=== PATIENT | male | born 1960 | race Caucasian/White ===

== ENCOUNTER 2017-06-07 14:06 | Emergency (ER) | payer OTHER ==
[2017-06-07 14:17] VITALS: TEMP 97.8; BMI 33.3
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
[2017-06-07] MEDS ORDERED: SODIUM CHLORIDE 1,000 ML IV STA (14:55)
[2017-06-07] MEDS ORDERED: morphine CARPU-JECT 4 MG/1 ML DISP.SYRIN IVPUSH ONE (14:59)
[2017-06-07] MEDS ORDERED: ONDANSETRON 4 MG/2 ML VIAL IVPUSH ONE (14:59)
[2017-06-07 15:54] LABS: HEMATOCRIT 47.1 % (35.4-49); HEMOGLOBIN 15.9 GM/dL (11.7-16.9); MCHC 33.7 g/dl (32.0-35.9)
[2017-06-07 15:59] LABS: BASO % 1.2 % (0-2.0); EOS % 1.7 % (0-4.5); LYMPH % 21.7 % (8-40); MCH 30.8 pg (25.7-33.7); MEAN CELL VOLUME 91.2 fl (80-96); MONO % 11.1 % (3.8-10.2); NEUT % 64.3 % (42.8-82.8); PLATELET COUNT 177 K/MM3 (134-434); RBC 5.16 M/mm3 (4.00-5.60); RDW 14.8 % (11.9-15.9); WHITE BLOOD COUNT 6.9 K/mm3 (4.0-10.0)
[2017-06-07] MEDS ORDERED: morphine SULFATE 4 MG/ML VIAL ONE (16:02)
[2017-06-07] MEDS ORDERED: ONDANSETRON 4 MG/2 ML VIAL ONE (16:02)
[2017-06-07 16:07] LABS: INR 1.04 (0.82-1.09); PROTHROMBIN TIME (PATIENT) 11.8 SEC (9.98-11.88)
[2017-06-07 16:19] LABS: ALBUMIN 3.9 g/dl (3.4-5.0); ANION GAP 9 (8-16); BILIRUBIN,TOTAL 0.5 mg/dL (0.2-1.0); BLOOD UREA NITROGEN 21 mg/dL (7-18); CALCIUM 9.3 mg/dL (8.5-10.1); CHLORIDE 102 mmol/L (98-107); CO2 27 mmol/L (21-32); GLUCOSE,RANDOM 199 mg/dL (74-106); SGPT/ALT 50 U/L (12-78); SODIUM 138 mmol/L (136-145); TOT PROT 7.2 g/dl (6.4-8.2)
[2017-06-07 16:22] LABS: ALK PHOS 52 U/L (45-117)
[2017-06-07 16:23] LABS: MAGNESIUM 2.4 mg/dL (1.8-2.4); POTASSIUM 4.8 mmol/L (3.5-5.1); SGOT/AST 41 U/L (15-37)
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
[2017-06-07 18:48] VITALS: BP 111/70; PULSE 70
--- NOTE | 2017-06-08 08:24 | EKG ---
Test Reason : Blood Pressure : / mmHG Vent. Rate : 082 BPM Atrial Rate : 082 BPM P-R Int : 182 ms QRS Dur : 094 ms QT Int : 348 ms P-R-T Axes : 053 056 051 degrees QTc Int : 406 ms NORMAL SINUS RHYTHM NORMAL ECG WHEN COMPARED WITH ECG OF 18-JUN-2014 10:39, NO SIGNIFICANT CHANGE WAS FOUND Confirmed by ADEOLA OZUNA MD ([id number]) on 06/08/2017 8:24:19 AM Referred By: Confirmed By:ADEOLA OZUNA MD
== END 2017-06-07 18:59 | disposition home or self-care (01) ==
LOC: JER 14:06
PROC: 3E033NZ Introduction of Analgesics, Hypnotics, Sedatives into Peripheral Vein, Percutaneous Approach (ICD-10-PCS; principal; 2017-06-07)
PROC: 3E033GC Introduction of Other Therapeutic Substance into Peripheral Vein, Percutaneous Approach (ICD-10-PCS; 2017-06-07)
PROC: 3E0337Z Introduction of Electrolytic and Water Balance Substance into Peripheral Vein, Percutaneous Approach (ICD-10-PCS; 2017-06-07)
DX: V43.52XA Car driver injured in collision with other type car in traffic accident, initial encounter (principal); Y93.89 Activity, other specified; Y92.410 Unspecified street and highway as the place of occurrence of the external cause; M54.9 Dorsalgia, unspecified; M54.2 Cervicalgia; Z87.891 Personal history of nicotine dependence; E07.9 Disorder of thyroid, unspecified
CPT/HCPCS: 36415; 70450-TC; 71045-TC-FY; 72125-TC; 72128-TC; 72131-TC; 80053; 82550; 83735; 84484; 85025; 85610; 93005; 93010; 99283-25; J7030

== ENCOUNTER 2018-09-07 18:48 | Observation (INO) | payer OTHER ==
[2018-09-07] MEDS ORDERED: ACETAMINOPHEN 1000 MG/100 ML VIAL (NON FORMULARY) IVPB ONE (19:58)
[2018-09-07] MEDS ORDERED: NITROGLYCERIN SUBLINGUAL 1/150 0.4 MG TAB SL ONE (19:58)
[2018-09-07 20:10] VITALS: BMI 33.0
[2018-09-07 20:21] LABS: BASO % 0.8 % (0-2.0); HEMATOCRIT 47.2 % (35.4-49); HEMOGLOBIN 15.6 GM/dl (11.7-16.9); LYMPH % 13.3 % (8-40); MCH 29.6 pg (25.7-33.7); MEAN CELL VOLUME 89.8 fl (80-96); MONO % 6.4 % (3.8-10.2); NEUT % 76.5 % (42.8-82.8); PLATELET COUNT 171 K/MM3 (134-434); RBC 5.26 M/mm3 (4.00-5.60); RDW 13.5 % (11.9-15.9); WHITE BLOOD COUNT 6.2 K/mm3 (4.0-10.8)
[2018-09-07 20:37] LABS: BILIRUBIN,TOTAL 0.5 mg/dl (0.2-1); CALCIUM 9.2 mg/dl (8.5-10); CREATININE 0.8 mg/dl (0.55-1.3); POTASSIUM 3.1 mmol/L (3.5-5.1); TOT PROT 6.8 g/dl (6.4-8.2)
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
[2018-09-07] MEDS ORDERED: ZOLPIDEM TARTRATE 5 MG TABLET PO ONE ×2 (20:54→23:50)
[2018-09-07] MEDS ORDERED: ATORVASTATIN CA 10 MG TABLET (FP) PO SCH (22:00)
[2018-09-07] MEDS ORDERED: PATIENT'S OWN MEDICATION (NON-FORMULARY) (Omega-3 Fatty Acids [Omega-3] 1,000 MG) PO SCH (22:00)
[2018-09-07] MEDS ORDERED: POTASSIUM CHLORIDE TABS 20 MEQ TABLET.ER (FP) PO ONE (22:19)
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
[2018-09-07] MEDS: PANTOPRAZOLE 40 MG TABLET (FP) PO SCH (23:20)
[2018-09-08] MEDS ORDERED: ACETAMINOPHEN 1000 MG/100 ML VIAL (NON FORMULARY) IVPB ONE (01:46)
[2018-09-08] MEDS ORDERED: NITROGLYCERIN SUBLINGUAL 1/150 0.4 MG TAB ONE (01:46)
[2018-09-08] MEDS ORDERED: NITROGLYCERIN SUBLINGUAL 1/150 0.4 MG TAB SL ONE (01:46)
[2018-09-08] MEDS ORDERED: ACETAMINOPHEN INJECTION 100 ML IVPB ONE (01:49)
--- NOTE | 2018-09-08 04:05 | PDOC ---
*Physical Exam - Vital Signs Last Vital Signs Temp Pulse Resp BP Pulse Ox 97.7 F 82 19 106/71 98 09/08/18 01:11 09/08/18 01:11 09/08/18 01:11 09/08/18 01:11 09/08/18 02:03 - Physical Exam Comments: 09/08/18 04:04 called to bedside to reassess patient for chest pain. patient complaining of substernal chest pain similar to the pain he had in the ED. EKG normal. Pain improved with SL nitro and IV tylenol. tropnonin negative. Patient will be followed by hospitalist team in the morning. ED Treatment Course - LABORATORY CBC & Chemistry Diagram: 09/07/18 20:00 09/07/18 20:00 - ADDITIONAL ORDERS Additional order review: Laboratory Results 09/07/18 09/07/18 20:00 20:00 Sodium 137 Potassium 3.1 L Chloride 103 Carbon Dioxide 25 Anion Gap 9 BUN 16.0 Creatinine 0.8 Est GFR (CKD-EPI)AfAm 116.56 Est GFR (CKD-EPI)NonAf 100.57 Random Glucose 154 H Calcium 9.2 Total Bilirubin 0.5 AST 22 ALT 21 Alkaline Phosphatase 59 Creatine Kinase 44 Troponin I < 0.03 Total Protein 6.8 Albumin 4.0 09/07/18 20:00 RBC 5.26 MCV 89.8 MCHC 33.0 RDW 13.5 MPV 11.0 Neutrophils % 76.5 D Lymphocytes % 13.3 D Monocytes % 6.4 Eosinophils % 3.0 Basophils % 0.8 - RADIOLOGY Radiology Studies Ordered: Category Date Time Status CXRPORT [CHEST X-RAY PORTABLE*] [RAD] Stat Radiology 09/07/18 19:57 Taken - Medications Given in the ED: ED Medications Discontinued Medications Generic Name Dose Route Start Last Admin Trade Name Freq PRN Reason Stop Dose Admin Acetaminophen 1,000 mg 09/07/18 19:58 09/07/18 20:23 Ofirmev Injection - IVPB 09/07/18 19:59 1,000 mg ONCE ONE Administration Acetaminophen 1,000 mg 09/08/18 01:46 09/08/18 01:58 Ofirmev Injection - IVPB 09/08/18 01:47 1,000 mg ONCE ONE Administration Nitroglycerin 0.4 mg 09/07/18 19:58 09/07/18 20:23 Nitrostat - SL 09/07/18 19:59 0.4 mg ONCE ONE Administration Nitroglycerin 0.4 mg 09/08/18 01:46 09/08/18 01:56 Nitrostat - SL 09/08/18 01:47 0.4 mg ONCE ONE Administration Potassium Chloride 40 meq 09/07/18 22:19 09/07/18 23:20 K-Dur - PO 09/07/18 22:20 40 meq ONCE ONE Administration Zolpidem Tartrate 5 mg 09/07/18 20:54 09/07/18 21:15 Ambien - PO 09/07/18 20:55 Not Given ONCE ONE *DC/Admit/Observation/Transfer Diagnosis at time of Disposition: Chest pain Qualifiers: Chest pain type: other chest pain Qualified Code(s): R07.89 - Other chest pain - Discharge Dispostion Condition at time of disposition: Stable - Referrals - Patient Instructions - Post Discharge Activity
[2018-09-08] MEDS: HEPARIN NA (PORCINE) 5,000 UNITS/ML 1ML VIAL SQ SCH ×2 (06:31→10:41)
[2018-09-08] MEDS ORDERED: LEVOTHYROXINE NA 150 MCG TABLET PO SCH (07:00)
[2018-09-08 08:26] LABS: RDW 13.3 % (11.9-15.9); WHITE BLOOD COUNT 4.8 K/mm3 (4.0-10.8)
[2018-09-08] MEDS: INSULIN (NOVOLOG) ASPART 100 UNITS/ML 10ML VIAL SQ SCH ×2 (08:27→11:18)
[2018-09-08 08:28] LABS: HEMATOCRIT 46.5 % (35.4-49); HEMOGLOBIN 15.4 GM/dl (11.7-16.9); MCH 29.8 pg (25.7-33.7); MCHC 33.3 g/dl (32.0-35.9); MEAN CELL VOLUME 89.7 fl (80-96); MEAN PLT VOLUME 10.7 fl (7.5-11.1); PLATELET COUNT 149 K/MM3 (134-434); RBC 5.18 M/mm3 (4.00-5.60)
[2018-09-08 09:02] LABS: ALBUMIN 3.9 g/dl (3.4-5.0); CALCIUM 8.9 mg/dl (8.5-10); CREATININE 0.7 mg/dl (0.55-1.3); MAGNESIUM 1.6 mg/dL (1.8-2.4); POTASSIUM 3.7 mmol/L (3.5-5.1); TOT PROT 6.8 g/dl (6.4-8.2)
[2018-09-08] MEDS ORDERED: PATIENT'S OWN MEDICATION (NON-FORMULARY) (Losartan/Hydrochlorothiazide [Losartan-Hctz 100- PO SCH (10:00)
[2018-09-08] MEDS ORDERED: ESCITALOPRAM OXALATE 20 MG TABLET (FP) PO SCH (10:00)
[2018-09-08] MEDS ORDERED: HYDROCHLOROTHIAZIDE 12.5 MG CAPSULE (FP) PO SCH (10:00)
[2018-09-08] MEDS ORDERED: LOSARTAN POTASSIUM 50 MG TABLET (FP) PO SCH (10:00)
[2018-09-08] MEDS: PANTOPRAZOLE 40 MG TABLET (FP) PO SCH (10:41)
--- NOTE | 2018-09-08 11:30 | CON.CARD ---
Consult Consult Specialty:: Cardiology Referred by:: Danii Resendiz Reason for Consultation:: Chest pain - History of Present Illness Chief Complaint: epigastric pain History of Present Illness: 57M w/ DM, chronic GERD, thyroid CA s/p resection, opiate dependance admitted with epigastric pain and severe GERD sx w/ water brash sensation after eating a leger, egg and cheese sandwich and falling asleep. He woke up with diffuse abdominal gurgling and discomfort and epigastric pain similar to previous GERD, but more severe. [place] acid in back of throat and came in for evaluation. Denies SOB, diaphoresis, PND, orthopnea. No exertional CP. Had false + stress 5 years ago prompting a cardiac cath at [place] which he reports was non-obstx. Reports the epigastric pain immediately resolved w/ Mylanta/antacids. - History Source History Provided By: Patient Limitations to Obtaining History: No Limitations - Past Medical History Cardio/Vascular: Yes: HTN, Hyperlipdemia Pulmonary: No: Asthma, Bronchitis, Cancer, COPD, O2 Dependent, Pneumonia, Previously Intubated, Pulmonary Embolus, Pulmonary Fibrosis, Sleep Apnea, Other Gastrointestinal: Yes: GERD Hepatobiliary: No: Cirrhosis, Cholelithiasis, Cholecystitis, Choledocholithiasis , Hepatitis A, Hepatitis B, Hepatitis C, Other Renal/: No: Renal Failure, Renal Inusuff, BPH, Cancer, Hematuria, Hemodialysis , Neurogenic Bladder, Renal Calculi, UTI, Other Heme/Onc: No: Anemia, B12 Deficiency, Bleeding Disorder, Cancer, Current Chemotherapy, Current Radiation Therapy, Hemochromatosis, Hypercoaguable State, Myeloproliferative Synd, Sickle Cell Disease, Sickle Cell Trait, Thrombocytopenia, Other Infectious Disease: No: AIDS, C-Diff, Herpes Zoster, HIV, MRSA, STD's, Tuberculosis, VREF, Other Psych: Yes: Addictions, Depression Musculoskeletal: No: Bursitis, Chronic low back pain, Hemiparesis, Hemiplegia, Osteoarthritis, Paraplegia, Other Rheumatology: No: Fibromyalgia, Gout, Lupus, Rheumatoid Arthritis, Sarcoidosis, Vasculitis, Other ENT: No: Allergic Rhinitis, Sinusitis, Other Endocrine: Yes: Diabetes Mellitus Dermatology: No: Basal Cell, Cellulitis, Eczema, Melanoma, Psoriasis, Squamous Cell, Other - Past Surgical History Additional Surgical History: prior thyroid resection, neck and shoulder surgery - Alcohol/Substance Use Hx Alcohol Use: No - Smoking History Smoking history: Former smoker Have you smoked in the past 12 months: Yes Aproximately how many cigarettes per day: 40 If you are a former smoker, when did you quit?: SEPTEMBER 2011 - Social History Usual Living Arrangement: With Child Place of : [facility] History of Recent Travel: No Home Medications - Allergies Allergies/Adverse Reactions: Allergies Allergy/AdvReac Type Severity Reaction Status Date / Time No Known Allergies Allergy Verified 09/07/18 18:50 - Home Medications Home Medications: Ambulatory Orders Buprenorphine HCl/Naloxone HCl [Suboxone 4 mg-1 mg Sl Film] 1 each SL DAILY Escitalopram Oxalate [Lexapro -] 20 mg PO DAILY 06/07/17 Glipizide [Glipizide ER] 10 mg PO BID 06/07/17 Levothyroxine Sodium [Synthroid] 0.3 mg PO DAILY 06/07/17 Losartan/Hydrochlorothiazide [Losartan-Hctz 100-12.5 mg Tab] 1 each PO DAILY [place]-3 Fatty Acids [[place]-3] 1,000 mg PO BID 06/07/17 Omeprazole 40 mg PO BID 06/07/17 Pravastatin Sodium [Pravachol (Nf)] 40 mg PO HS 06/07/17 metFORMIN HCL [Metformin HCl ER] 1,000 mg PO BID 06/07/17 Family Disease History - Family Disease History Family History: Unremarkable Review of Systems - Review of Systems Constitutional: reports: No Symptoms Eyes: reports: No Symptoms HENT: reports: No Symptoms Neck: reports: No Symptoms Cardiovascular: reports: No Symptoms Respiratory: reports: No Symptoms Gastrointestinal: reports: Abdominal Pain, Bloating, Other (Epigastric pain now resolved.) Genitourinary: reports: No Symptoms Breasts: reports: No Symptoms Reported Musculoskeletal: reports: No Symptoms Integumentary: reports: No Symptoms Neurological: reports: No Symptoms Endocrine: reports: No Symptoms Hematology/Lymphatic: reports: No Symptoms Psychiatric: reports: No Symptoms - Risk Factors Known Risk Factors: Yes: Diabetes Mellitus, Hypercholesterolemia, Hypertension, Smoking Vital Signs: Vital Signs Temperature 98.9 F 09/08/18 10:35 Pulse Rate 83 09/08/18 10:35 Respiratory Rate 09/08/18 10:35 Blood Pressure 113/68 09/08/18 10:35 O2 Sat by Pulse Oximetry (%) 99 09/08/18 10:35 Constitutional: Yes: No Distress, Calm Eyes: Yes: Conjunctiva Clear, EOM Intact HENT: Yes: Atraumatic, Normocephalic Neck: Yes: Trachea Midline Respiratory: Yes: CTA Bilaterally Gastrointestinal: Yes: Soft, Other (no rebound or guarding) Cardiovascular: Yes: Regular Rate and Rhythm JVD: No Carotid Bruit: No PMI: Non-Displaced Heart Sounds: Yes: S1, S2 Edema: No Peripheral Pulses WNL: Yes Integumentary: Yes: WNL Neurological: Yes: Alert, Oriented ...Motor Strength: WNL Psychiatric: Yes: Alert, Oriented - Other Data Labs, Other Data: CBC, BMP 09/08/18 07:37 09/08/18 07:37 Troponin, BNP 09/07/18 09/08/18 09/08/18 20:00 02:15 07:37 Troponin I < 0.03 < 0.02 < 0.03 Troponin, BNP 09/07/18 09/08/18 09/08/18 20:00 02:15 07:37 Troponin I < 0.03 < 0.02 < 0.03 1. 09/07 18:57--NSR 83bpm. Qtc= 425. No acute ST changes. 2. 09/08 01:46--NSR 74bpm, no acute changes. Imaging - Results X-ray: Pending, Other (my review, no infiltrates or cardiomegaly. Aortic contour normal) Assessment/Plan IMP: 1. Suspect GERD- triggered by heavy meal 2. 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 5 years ago) 3. History of DM, HTN, HLD 4. Reported opioid dependance. Epigastric pain with water brash similar to previous GERD, resultant atypical CP completely relieved with antacid. Serial cardiac enzymes negative and stable ECGs without ischemic changes. REC: 1. No objection to discharge home with PPI and instructions on techniques to reduce GERD. 2. Continue home meds for DM, HLD, HTN. 3. Instructed patient to f/u in office w/ Dr. Rivera next week to re-establish cardiac care: needs lipid management and consideration for updated CV risk stratification with outpatient stress testing. Thank you.
[2018-09-08] MEDS ORDERED: MAGNESIUM SULF 50% (8.12 MEQ/2 ML-1 GM VIAL) IVPB ONE (12:17)
--- NOTE | 2018-09-08 12:29 | DS ---
Physical Exam: SUBJECTIVE: Patient seen and examined. Pt reports chest pain resolved, no complains. OBJECTIVE: Vital Signs Period Temp Pulse Resp BP Sys/Elaine Pulse Ox Last 24 Hr 97.7 F-98.9 F 67-83 18-20 104-134/66-90 98-99 PHYSICAL EXAM GENERAL: The patient is awake, alert, and fully oriented, in no acute distress. HEAD: Normal with no signs of trauma. EYES: PERRL, extraocular movements intact, sclera anicteric, conjunctiva clear. ENT: Ears normal, nares patent, oropharynx clear without exudates, moist mucous membranes. NECK: Trachea midline, full range of motion, supple. LUNGS: Breath sounds equal, clear to auscultation bilaterally, no wheezes, no crackles, no accessory muscle use. HEART: Regular rate and rhythm, S1, S2 without murmur, rub or gallop. ABDOMEN: Soft, nontender, nondistended, normoactive bowel sounds, no guarding, no rebound, no hepatosplenomegaly, no masses. EXTREMITIES: 2+ pulses, warm, well-perfused, no edema. NEUROLOGICAL: Cranial nerves II through XII grossly intact. Normal speech, gait not observed. PSYCH: Normal mood, normal affect. SKIN: Warm, dry, normal turgor, no rashes or lesions noted. LABS Laboratory Results - last 24 hr 09/07/18 09/07/18 09/07/18 20:00 20:00 20:00 WBC 6.2 RBC 5.26 Hgb 15.6 Hct 47.2 MCV 89.8 MCH 29.6 MCHC 33.0 RDW 13.5 Plt Count 171 MPV 11.0 Absolute Neuts (auto) 4.8 Neutrophils % 76.5 D Lymphocytes % 13.3 D Monocytes % 6.4 Eosinophils % 3.0 Basophils % 0.8 Sodium 137 Potassium 3.1 L Chloride 103 Carbon Dioxide 25 Anion Gap 9 BUN 16.0 Creatinine 0.8 Est GFR (CKD-EPI)AfAm 116.56 Est GFR (CKD-EPI)NonAf 100.57 POC Glucometer Random Glucose 154 H Calcium 9.2 Magnesium Total Bilirubin 0.5 AST 22 ALT 21 Alkaline Phosphatase 59 Creatine Kinase 44 Troponin I < 0.03 Total Protein 6.8 Albumin 4.0 09/08/18 09/08/18 09/08/18 02:15 06:43 07:37 WBC 4.8 RBC 5.18 Hgb 15.4 Hct 46.5 MCV 89.7 MCH 29.8 MCHC 33.3 RDW 13.3 Plt Count 149 MPV 10.7 Absolute Neuts (auto) Neutrophils % Lymphocytes % Monocytes % Eosinophils % Basophils % Sodium Potassium Chloride Carbon Dioxide Anion Gap BUN Creatinine Est GFR (CKD-EPI)AfAm Est GFR (CKD-EPI)NonAf POC Glucometer 156 Random Glucose Calcium Magnesium Total Bilirubin AST ALT Alkaline Phosphatase Creatine Kinase 47 Troponin I < 0.02 Total Protein Albumin 09/08/18 09/08/18 09/08/18 07:37 07:37 11:15 WBC RBC Hgb Hct MCV MCH MCHC RDW Plt Count MPV Absolute Neuts (auto) Neutrophils % Lymphocytes % Monocytes % Eosinophils % Basophils % Sodium 136 Potassium 3.7 Chloride 103 Carbon Dioxide 22 Anion Gap 11 BUN 13.0 Creatinine 0.7 Est GFR (CKD-EPI)AfAm 123.13 Est GFR (CKD-EPI)NonAf 106.24 POC Glucometer 150 Random Glucose 128 H Calcium 8.9 Magnesium 1.6 L Total Bilirubin 1.0 AST 17 ALT 22 Alkaline Phosphatase 53 Creatine Kinase Troponin I < 0.03 Total Protein 6.8 Albumin 3.9 HOSPITAL COURSE: Date of Admission:09/07/18 Date of Discharge: 09/08/18 Minutes to complete discharge: 40 Discharge Summary Reason For Visit: CHEST PAIN Current Active Problems Chest pain (Acute) Hospital Course: This is a 57 year old male, with a significant PMH of Thyroid cancer, HTN, NIDDM , x2 CO (4-5 years ago), chronic back pain (on suboxone), multiple spinal surgeries,, hypercholesterolemia, liver cirrhosis and sleep apnea,who presented to ED with mid-sternal chest pain,not associated with sob, diaphoresis or palpitations. Pt stated "I have chronic chest pain" pt was given Nitro in ED, which relieved pain, c/o pain radiating to shoulder, denies numbness or pain going down arm or jaw pain. pt has been off of suboxone for 2 weeks. Last seen by cardio 5 yrs ago. does not recall name. Pt was admitted under observation, EKG: SR, serial cardiac enzymes negative, ACS ruled out, telemetry monitoring reviewed, no cardiac events noted. Pt was evaluated by cardiology Dr. Bryan, rec out pt cardiology followup. Atypical chest pain likely due to GERD. Will resume on PPI. *Hypokalemia, s/p replacement, K normalized. *NIDDM: BS stable, will continue on home meds,rec to resume on consistent carbohydrate diet. *Chronic back pain- stable,pt off suboxone 2 weeks (pt has hx of chronic use of Morphine) *HTN: BP stable, will resume on home meds Losaartan/hctz *HLD: Will resume on Statin * Hx of Liver cirrhosis,LFT's wnl, out pt GI followup. * Hypomagnesemia: Mg 1.6, replaced , K stable. Condition: Good - Instructions Diet, Activity, Other Instructions: Diabetic and Heart healthy diet ( low fat, low salt) Referrals: Yobany Awan MD [Staff Physician] - 1 Week Alfa Robbins MD [Primary Care Provider] - (1-2 weeks.) Disposition: HOME - Home Medications Comprehensive Discharge Medication List: Ambulatory Orders Escitalopram Oxalate [Lexapro -] 20 mg PO DAILY 06/07/17 Glipizide [Glipizide ER] 10 mg PO BID 06/07/17 Losartan/Hydrochlorothiazide [Losartan-Hctz 100-12.5 mg Tab] 1 each PO DAILY [place]-3 Fatty Acids [[place]-3] 1,000 mg PO BID 06/07/17 Omeprazole 40 mg PO BID 06/07/17 metFORMIN HCL [Metformin ER Osmotic] 1,000 mg PO BID 06/07/17 This patient is new to me today: Yes Date on this admission: 09/09/18 Emergency Visit: Yes ED Registration Date: 09/07/18 Care time: The patient presented to the Emergency Department on the above date and was hospitalized for further evaluation of their emergent condition. Critical Care patient: No - Discharge Referral Referred to [facility] No
--- NOTE | 2018-09-08 12:35 | EKG ---
Test Reason : Blood Pressure : / mmHG Vent. Rate : 083 BPM Atrial Rate : 083 BPM P-R Int : 168 ms QRS Dur : 086 ms QT Int : 362 ms P-R-T Axes : 088 050 043 degrees QTc Int : 425 ms NORMAL SINUS RHYTHM NORMAL ECG WHEN COMPARED WITH ECG OF 07-JUN-2017 16:43, NO SIGNIFICANT CHANGE WAS FOUND Confirmed by JIM SHEIKH MD ([id number]) on 09/08/2018 12:34:39 PM Referred By: MD DESAI Confirmed By:JIM SHEIKH MD
[2018-09-08 15:46] VITALS: BP 116/69; PULSE 78; TEMP 98.7
--- NOTE | 2018-09-10 10:40 | EKG ---
Test Reason : Blood Pressure : / mmHG Vent. Rate : 074 BPM Atrial Rate : 074 BPM P-R Int : 170 ms QRS Dur : 090 ms QT Int : 370 ms P-R-T Axes : 044 058 042 degrees QTc Int : 410 ms NORMAL SINUS RHYTHM WITH SINUS ARRHYTHMIA NORMAL ECG WHEN COMPARED WITH ECG OF 07-SEP-2018 18:57, NO SIGNIFICANT CHANGE WAS FOUND Confirmed by KRIS BRUCE MD ([id number]) on 09/10/2018 10:39:56 AM Referred By: Confirmed By:KRIS BRUCE MD
== END 2018-09-08 14:15 | disposition home or self-care (01) ==
LOC: FER 18:48 → FM/S 21:39 → INTOOBSV 21:39 → UNDODISIN 09-08 14:15
PROVIDERS: ADMIT Internal Medicine; ATTEND Nurse Practitioner Family
PROC: 3E033NZ Introduction of Analgesics, Hypnotics, Sedatives into Peripheral Vein, Percutaneous Approach (ICD-10-PCS; principal; 2018-09-07)
PROC: 3E033GC Introduction of Other Therapeutic Substance into Peripheral Vein, Percutaneous Approach (ICD-10-PCS; 2018-09-07)
PROC: 3E013GC Introduction of Other Therapeutic Substance into Subcutaneous Tissue, Percutaneous Approach (ICD-10-PCS; 2018-09-07)
DX: R07.89 Other chest pain (principal); I10 Essential (primary) hypertension; I11.9 Hypertensive heart disease without heart failure; I25.10 Atherosclerotic heart disease of native coronary artery without angina pectoris; I25.2 Old myocardial infarction; M54.5 Low back pain; G89.29 Other chronic pain; K74.60 Unspecified cirrhosis of liver; G47.30 Sleep apnea, unspecified; E87.6 Hypokalemia; E83.42 Hypomagnesemia; Z87.891 Personal history of nicotine dependence; Z79.84 Long term (current) use of oral hypoglycemic drugs; Z91.14 Patient's other noncompliance with medication regimen; Z85.850 Personal history of malignant neoplasm of thyroid
CPT/HCPCS: 36415; 71045-TC-FY; 80053; 82550; 82962; 83735; 84484; 85025; 85027; 93005; 96372; 96374; 96375; 96376; 99285-25; G0378; J0131; J1644

== ENCOUNTER 2022-06-12 15:57 | Emergency (ER) | payer OTHER ==
[2022-06-12 16:03] VITALS: BP 100/70; PULSE 94; RESP 18; TEMP 98; BMI 29.0
[2022-06-12] MEDS ORDERED: ONDANSETRON 4 MG/2 ML VIAL IVPUSH ONE (17:14)
[2022-06-12] MEDS ORDERED: ONDANSETRON 4 MG/2 ML VIAL ONE (17:22)
[2022-06-12 17:28] LABS: BASO % 0.9 % (0-2.0); HEMATOCRIT 43.2 % (35.4-49); HEMOGLOBIN 14.8 GM/dL (11.7-16.9); LYMPH % 23.1 % (8-40); MCH 30.1 pg (25.7-33.7); MCHC 34.2 g/dl (32.0-35.9); MEAN PLT VOLUME 9.9 fl (7.5-11.1); PLATELET COUNT 210 10^3/uL (134-434); RBC 4.92 M/mm3 (4.00-5.60); RDW 13.8 % (11.9-15.9); WHITE BLOOD COUNT 5.8 K/mm3 (4.0-10.0)
[2022-06-12] MEDS ORDERED: ACETAMINOPHEN 1000 MG/100 ML BAG IVPB ONE (17:30)
[2022-06-12] MEDS ORDERED: ACETAMINOPHEN INJECTION 100 ML IVPB ONE (17:31)
[2022-06-12 17:50] LABS: ALBUMIN 3.4 g/dl (3.4-5.0); BLOOD UREA NITROGEN 16.6 mg/dL (7-18)
[2022-06-12 17:55] LABS: BILIRUBIN,TOTAL 0.4 mg/dL (0.2-1); TOT PROT 6.7 g/dl (6.4-8.2)
[2022-06-12] MEDS ORDERED: SODIUM CHLORIDE 1,000 ML IV STA (18:34)
== END 2022-06-12 18:50 | disposition left against medical advice (07) ==
LOC: JER 15:57
PROC: 3E033NZ Introduction of Analgesics, Hypnotics, Sedatives into Peripheral Vein, Percutaneous Approach (ICD-10-PCS; principal; 2022-06-12)
DX: R07.9 Chest pain, unspecified (principal); R11.2 Nausea with vomiting, unspecified; R19.7 Diarrhea, unspecified; Z20.822 Contact with and (suspected) exposure to COVID-19
CPT/HCPCS: 0241U-QW; 36415; 71045-TC-FY; 80053; 82272; 83605; 83690; 84484; 85025; 93005; 93010; 99285-25

== ENCOUNTER 2023-09-14 10:38 | Observation (INO) | payer OTHER ==
[2023-09-14 11:25] LABS: BASO % 1.2 % (0-2.0); EOS % 4.5 % (0-4.5); HEMATOCRIT 41.8 % (35.4-49); HEMOGLOBIN 14.2 GM/dL (11.7-16.9); LYMPH % 29.4 % (8-40); MCH 30.5 pg (25.7-33.7); MCHC 34.1 g/dl (32.0-35.9); MEAN CELL VOLUME 89.6 fl (80-96); MEAN PLT VOLUME 9.2 fl (7.5-11.1); NEUT % 47.9 % (42.8-82.8); PLATELET COUNT 197 10^3/uL (134-434); RBC 4.66 M/mm3 (4.00-5.60); RDW 16.3 % (11.9-15.9); WHITE BLOOD COUNT 5.5 K/mm3 (4.0-10.0)
[2023-09-14 11:29] LABS: VENOUS BASE EXCESS -1.4 mmol/L (-2-2); VENOUS PCO2 43.8 mmHg (38-52); VENOUS PH 7.36 (7.310-7.410)
[2023-09-14 11:32] LABS: INR 0.97 (0.83-1.09); PROTHROMBIN TIME (PATIENT) 11.2 SEC (9.7-13.0)
[2023-09-14 11:35] LABS: ACTIVATED PTT 30.8 SECONDS (25.2-36.5)
[2023-09-14] MEDS ORDERED: dilTIAZem HCL 125 MG/25 ML - 25 ML VIAL ONE (11:52)
[2023-09-14 11:55] LABS: CHLORIDE 105 mmol/L (98-107); POTASSIUM 4.4 mmol/L (3.5-5.1); SODIUM 138 mmol/L (136-145)
[2023-09-14] MEDS: dilTIAZem HCL 50 MG/10 ML - 10 ML VIAL IVPUSH ONE (11:56)
[2023-09-14 11:59] LABS: CALCIUM 9.2 mg/dL (8.5-10.1)
[2023-09-14 12:00] LABS: ALBUMIN 3.9 g/dl (3.4-5.0); ANION GAP 7 mmol/L (4-13); BLOOD UREA NITROGEN 10.8 mg/dL (7-18); CO2 27 mmol/L (21-32)
[2023-09-14] MEDS ORDERED: dilTIAZem HCL 30 MG TABLET ONE ×2 (12:01→18:12)
[2023-09-14 12:03] LABS: SGOT/AST 23 U/L (15-37); SGPT/ALT 40 U/L (13-61)
[2023-09-14 12:05] LABS: BILIRUBIN,TOTAL 0.5 mg/dL (0.2-1); TOT PROT 7.6 g/dl (6.4-8.2)
[2023-09-14 12:06] LABS: ALK PHOS 162 U/L (45-117)
[2023-09-14] MEDS: dilTIAZem HCL 30 MG TABLET PO ONE (12:07)
[2023-09-14 12:16] LABS: GLUCOSE,RANDOM 403 mg/dL (74-106)
[2023-09-14] MEDS ORDERED: metFORMIN HCL 500 MG TABLET (FP) ONE (17:40)
[2023-09-14] MEDS ORDERED: glipiZIDE 5 MG TABLET (FP) ONE (17:40)
[2023-09-14] MEDS: glipiZIDE-XL 10 MG TAB.ER.24 (FP) PO SCH (17:48)
[2023-09-14] MEDS: INSULIN ASPART SLIDING SCALE (NOVOLOG) 1 VIAL SQ SCH (17:48)
[2023-09-14] MEDS: dilTIAZem HCL 30 MG TABLET PO SCH (18:18)
[2023-09-14] MEDS: RIVAROXABAN 20 MG TABLET PO SCH (19:20)
[2023-09-14 20:41] VITALS: BMI 26.9
[2023-09-14] MEDS ORDERED: INSULIN ASPART SLIDING SCALE (NOVOLOG) 1 VIAL SQ ONE (21:29)
[2023-09-14] MEDS: FLUoxetine HCL 20 MG CAPSULE PO SCH (21:32)
[2023-09-14] MEDS: OMEGA-3 ACID ETHYL ESTERS (FATTY-ACIDS) 1 GM CAPSULE (FP) PO SCH (21:32)
[2023-09-14] MEDS: PANTOPRAZOLE 40 MG TABLET PO SCH (21:33)
[2023-09-15] MEDS: ACETAMINOPHEN 325 MG TABLET (FP) PO PRN (06:26)
[2023-09-15] MEDS ORDERED: INSULIN ASPART SLIDING SCALE (NOVOLOG) 1 VIAL SQ ONE (06:40)
[2023-09-15 09:28] LABS: BASO % 0.8 % (0-2.0); EOS % 5.4 % (0-4.5); HEMATOCRIT 42.2 % (35.4-49); HEMOGLOBIN 14.6 GM/dL (11.7-16.9); LYMPH % 27.6 % (8-40); MCH 30.9 pg (25.7-33.7); MCHC 34.7 g/dl (32.0-35.9); MEAN CELL VOLUME 89.1 fl (80-96); MEAN PLT VOLUME 9.2 fl (7.5-11.1); MONO % 12.3 % (3.8-10.2); NEUT % 53.9 % (42.8-82.8); PLATELET COUNT 184 10^3/uL (134-434); RBC 4.74 M/mm3 (4.00-5.60); RDW 16.1 % (11.9-15.9); WHITE BLOOD COUNT 5.3 K/mm3 (4.0-10.0)
[2023-09-15 09:45] LABS: POTASSIUM 4.1 mmol/L (3.5-5.1)
[2023-09-15 09:52] LABS: CALCIUM 8.7 mg/dL (8.5-10.1)
[2023-09-15 09:54] LABS: CREATININE 0.6 mg/dL (0.55-1.3)
[2023-09-15 09:55] LABS: ALBUMIN 3.7 g/dl (3.4-5.0); BLOOD UREA NITROGEN 8.1 mg/dL (7-18); TOT PROT 7.3 g/dl (6.4-8.2)
[2023-09-15 09:56] LABS: MAGNESIUM 1.7 mg/dL (1.8-2.4)
[2023-09-15 09:59] LABS: BILIRUBIN,TOTAL 0.8 mg/dL (0.2-1)
[2023-09-15] MEDS: NICOTINE 21 MG/24 HOURS TOPICAL PATCH TD SCH (12:00)
[2023-09-15] MEDS: DEXTROAMPHETAMINE/AMPHETAMINE 10 MG CAP.ER.24H PO SCH (14:18)
[2023-09-15] MEDS: TAMSULOSIN HCL 0.4 MG CAP PO SCH (15:52)
[2023-09-16] MEDS: HEPARIN NA (PORCINE) 5,000 UNITS/ML 1ML VIAL SQ SCH (08:08)
[2023-09-16] MEDS: MAGNESIUM SULFATE IN WATER 2 GM/50 ML IVPB IVPB ONE (12:34)
[2023-09-16] MEDS: SENNOSIDES/DOCUSATE COMBO (SENNA PLUS) TABLET (UD) PO PRN (21:16)
[2023-09-17] MEDS: EMPAGLIFLOZIN (JARDIANCE) 25 MG TABLET PO SCH (06:27)
[2023-09-17 07:29] LABS: EOS % 5.2 % (0-4.5); HEMATOCRIT 39.7 % (35.4-49); HEMOGLOBIN 13.5 GM/dL (11.7-16.9); LYMPH % 26.3 % (8-40); MCH 30.6 pg (25.7-33.7); MCHC 34.1 g/dl (32.0-35.9); MEAN CELL VOLUME 89.6 fl (80-96); MEAN PLT VOLUME 9.3 fl (7.5-11.1); MONO % 11.4 % (3.8-10.2); NEUT % 56.1 % (42.8-82.8); PLATELET COUNT 169 10^3/uL (134-434); RBC 4.43 M/mm3 (4.00-5.60); RDW 15.6 % (11.9-15.9); WHITE BLOOD COUNT 5.1 K/mm3 (4.0-10.0)
[2023-09-17 07:48] LABS: POTASSIUM 3.9 mmol/L (3.5-5.1)
[2023-09-17 07:57] LABS: CALCIUM 8.6 mg/dL (8.5-10.1)
[2023-09-17 07:58] LABS: ALBUMIN 3.4 g/dl (3.4-5.0); BLOOD UREA NITROGEN 10.7 mg/dL (7-18); MAGNESIUM 1.6 mg/dL (1.8-2.4)
[2023-09-17 08:00] LABS: CREATININE 0.6 mg/dL (0.55-1.3)
[2023-09-17 08:02] LABS: BILIRUBIN,TOTAL 0.8 mg/dL (0.2-1); TOT PROT 6.7 g/dl (6.4-8.2)
[2023-09-17] MEDS: MAGNESIUM HYDROX 2400MG/30ML ORAL SUSPENSION 30 ML CUP PO PRN (09:17)
[2023-09-17] MEDS: MAGNESIUM OXIDE 400 MG TABLET (FP) PO SCH (14:38)
[2023-09-17] MEDS: guaiFENesin/D-METHORPHAN HB 10 ML UNIT-DOSE CUPS PO PRN (14:38)
[2023-09-17] MEDS: dilTIAZem HCL 60 MG TABLET PO ONE (22:35)
[2023-09-18] MEDS ORDERED: REGADENOSON 0.4 MG/5 ML PRE-FILLED SYRINGE IVPUSH ONE (09:15)
[2023-09-18] MEDS: REGADENOSON 0.4 MG/5 ML PRE-FILLED SYRINGE IVPUSH ONE (10:35)
[2023-09-18] MEDS: ATORVASTATIN CA 10 MG TABLET (FP) PO SCH (21:22)
[2023-09-19] MEDS: LEVOTHYROXINE NA 100 MCG TABLET (FP) PO SCH (11:37)
[2023-09-19 12:30] VITALS: BP 111/78; PULSE 90; RESP 18; TEMP 98.1
== END 2023-09-19 13:24 | disposition short-term general hospital (02) ==
LOC: JER 10:38 → UNDOADMOB 15:13 → INTOOBSV 15:13 → JERBED 15:13 → J4W 20:00 → JERBED 09-15 10:00 → J4W 09-15 10:00
PROVIDERS: ADMIT Internal Medicine; ATTEND Internal Medicine
PROC: 3E033GC Introduction of Other Therapeutic Substance into Peripheral Vein, Percutaneous Approach (ICD-10-PCS; principal; 2023-09-15)
PROC: 3E033GC Introduction of Other Therapeutic Substance into Peripheral Vein, Percutaneous Approach (ICD-10-PCS; 2023-09-15)
DX: I48.92 Unspecified atrial flutter (principal); R07.9 Chest pain, unspecified; I10 Essential (primary) hypertension; E78.5 Hyperlipidemia, unspecified; Z91.199 Patient's noncompliance with other medical treatment and regimen due to unspecified reason; E11.9 Type 2 diabetes mellitus without complications; K21.9 Gastro-esophageal reflux disease without esophagitis; F32.A Depression, unspecified; F99 Mental disorder, not otherwise specified; F17.210 Nicotine dependence, cigarettes, uncomplicated
CPT/HCPCS: 0241U-QW; 36415; 71045-TC-FY; 71275-TC; 78452-TC; 80053; 80061; 82550; 82803; 82962; 83036; 83735; 83880; 84439; 84443; 84484; 85025; 85379; 85610; 85730; 93005; 93010; 93017; 93306-TC; 96365; 96375; 99285-25; A9502; G0378; J2785; Q9967

== ENCOUNTER 2023-10-19 23:46 | Observation (INO) | payer OTHER ==
[2023-10-20 00:07] VITALS: BMI 26.4
[2023-10-20 00:17] LABS: BASO % 0.8 % (0-2.0); EOS % 2.3 % (0-4.5); HEMATOCRIT 35.8 % (35.4-49); HEMOGLOBIN 12.5 GM/dL (11.7-16.9); LYMPH % 16.5 % (8-40); MCH 30.9 pg (25.7-33.7); MEAN CELL VOLUME 88.4 fl (80-96); MEAN PLT VOLUME 8.8 fl (7.5-11.1); MONO % 7.3 % (3.8-10.2); NEUT % 73.1 % (42.8-82.8); PLATELET COUNT 175 10^3/uL (134-434); RBC 4.05 M/mm3 (4.00-5.60); RDW 14.5 % (11.9-15.9); WHITE BLOOD COUNT 7.1 K/mm3 (4.0-10.0)
[2023-10-20 00:26] LABS: INR 1.12 (0.83-1.09); PROTHROMBIN TIME (PATIENT) 12.8 SEC (9.7-13.0)
[2023-10-20] MEDS ORDERED: ACETAMINOPHEN INJECTION 100 ML IVPB ONE (00:28)
[2023-10-20] MEDS ORDERED: FAMOTIDINE 20 MG/50 ML IVPB 20 MG/50 ML MG IVPB ONE (00:28)
[2023-10-20 00:29] LABS: ACTIVATED PTT 27.2 SECONDS (25.2-36.5)
[2023-10-20] MEDS: ACETAMINOPHEN 1000 MG/100 ML BAG IVPB ONE (00:33)
[2023-10-20] MEDS: LACTATED RINGERS SOLUTION 1000 ML INFUS.BAG IV ONE (00:34)
[2023-10-20] MEDS: FAMOTIDINE 20 MG/50 ML IVPB 20 MG/50 ML MG IVPB ONE (00:34)
[2023-10-20 00:49] LABS: POTASSIUM 3.4 mmol/L (3.5-5.1)
[2023-10-20 00:50] LABS: CALCIUM 8.8 mg/dL (8.5-10.1)
[2023-10-20 00:51] LABS: ALBUMIN 3.6 g/dl (3.4-5.0); BLOOD UREA NITROGEN 8.6 mg/dL (7-18); MAGNESIUM 1.5 mg/dL (1.8-2.4)
[2023-10-20 00:54] LABS: CREATININE 0.8 mg/dL (0.55-1.3); PHOSPHOROUS 2.6 mg/dL (2.5-4.9)
[2023-10-20 00:56] LABS: BILIRUBIN,TOTAL 0.6 mg/dL (0.2-1); TOT PROT 6.5 g/dl (6.4-8.2)
[2023-10-20 00:59] LABS: N-TERMINAL BNP 148.2 pg/ml (5-125)
[2023-10-20] MEDS ORDERED: POTASSIUM CHLORIDE TABS 20 MEQ TABLET.ER (FP) PO ONE (01:56)
[2023-10-20] MEDS ORDERED: MAGNESIUM SULFATE IN WATER 2 GM/50 ML IVPB IVPB ONE (01:56)
[2023-10-20] MEDS: MAGNESIUM SULFATE IN WATER 2 GM/50 ML IVPB IVPB ONE (02:07)
[2023-10-20] MEDS: POTASSIUM CHLORIDE TABS 20 MEQ TABLET.ER (FP) PO ONE (02:07)
[2023-10-20 08:52] LABS: BASO % 0.9 % (0-2.0); HEMATOCRIT 36.6 % (35.4-49); HEMOGLOBIN 12.9 GM/dL (11.7-16.9); LYMPH % 26.7 % (8-40); MCH 31.2 pg (25.7-33.7); MCHC 35.2 g/dl (32.0-35.9); MEAN CELL VOLUME 88.5 fl (80-96); MEAN PLT VOLUME 8.7 fl (7.5-11.1); MONO % 10.5 % (3.8-10.2); NEUT % 58.9 % (42.8-82.8); PLATELET COUNT 170 10^3/uL (134-434); RBC 4.13 M/mm3 (4.00-5.60); RDW 14.2 % (11.9-15.9); WHITE BLOOD COUNT 5.8 K/mm3 (4.0-10.0)
[2023-10-20 09:16] LABS: BLOOD UREA NITROGEN 6.1 mg/dL (7-18); MAGNESIUM 1.7 mg/dL (1.8-2.4)
[2023-10-20 09:19] LABS: CREATININE 0.6 mg/dL (0.55-1.3)
[2023-10-20] MEDS: ASPIRIN COATED 81 MG TABLET.EC PO SCH (09:49)
[2023-10-20] MEDS: CLOPIDOGREL BISULFATE 75 MG TABLET (FP) PO SCH (09:49)
[2023-10-20] MEDS: RIVAROXABAN 20 MG TABLET PO SCH (17:20)
[2023-10-20] MEDS: MAGNESIUM OXIDE 400 MG TABLET (FP) PO SCH (21:24)
[2023-10-20] MEDS ORDERED: PATIENT'S OWN MEDICATION (NON-FORMULARY) (Omega-3 Fatty Acids [Omega-3] 1,000 MG Capsule) PO SCH (22:00)
[2023-10-20] MEDS ORDERED: glipiZIDE-XL 10 MG TAB.ER.24 (FP) PO SCH (22:00)
[2023-10-21 01:03] VITALS: RESP 18
[2023-10-21] MEDS: IBUPROFEN 600 MG TABLET (FP) PO PRN (06:14)
[2023-10-21] MEDS: HYDROCHLOROTHIAZIDE 12.5 MG CAPSULE (FP) PO SCH (09:47)
[2023-10-21] MEDS: ESCITALOPRAM OXALATE 20 MG TABLET PO SCH (09:47)
[2023-10-21] MEDS: ACETAMINOPHEN 325 MG TABLET (FP) PO PRN (09:47)
[2023-10-21] MEDS: LOSARTAN POTASSIUM 50 MG TABLET PO SCH (09:47)
[2023-10-21] MEDS ORDERED: PATIENT'S OWN MEDICATION (NON-FORMULARY) (Losartan/Hydrochlorothiazide [Losartan-Hctz 100- PO SCH (10:00)
[2023-10-21 14:17] VITALS: BP 147/73; PULSE 68; TEMP 97.3
== END 2023-10-21 14:46 | disposition home or self-care (01) ==
LOC: JER 23:46 → JERBED 10-20 03:55 → J4S 10-20 06:25
PROVIDERS: ADMIT Internal Medicine; ATTEND Internal Medicine
PROC: 3E033NZ Introduction of Analgesics, Hypnotics, Sedatives into Peripheral Vein, Percutaneous Approach (ICD-10-PCS; principal; 2023-10-20)
PROC: 3E033GC Introduction of Other Therapeutic Substance into Peripheral Vein, Percutaneous Approach (ICD-10-PCS; 2023-10-20)
PROC: 3E0337Z Introduction of Electrolytic and Water Balance Substance into Peripheral Vein, Percutaneous Approach (ICD-10-PCS; 2023-10-20)
DX: R07.9 Chest pain, unspecified (principal); E05.90 Thyrotoxicosis, unspecified without thyrotoxic crisis or storm; I50.9 Heart failure, unspecified; Z95.1 Presence of aortocoronary bypass graft; I10 Essential (primary) hypertension; I48.92 Unspecified atrial flutter; E78.5 Hyperlipidemia, unspecified; E11.9 Type 2 diabetes mellitus without complications; Z85.850 Personal history of malignant neoplasm of thyroid; K74.60 Unspecified cirrhosis of liver; G47.30 Sleep apnea, unspecified; F31.9 Bipolar disorder, unspecified; M54.9 Dorsalgia, unspecified
CPT/HCPCS: 36415; 71045-TC-FY; 71275-TC; 74174-TC; 80048; 80053; 82962; 83735; 83880; 84100; 84439; 84443; 84484; 85025; 85610; 85730; 86850; 86900; 86901; 93005; 93010; 96365; 96367; 96375; 99285-25; G0378; J0131

== ENCOUNTER 2024-05-18 20:53 | Inpatient (IN) | payer OTHER ==
[2024-05-18 22:30] VITALS: BMI 25.7
[2024-05-18] MEDS ORDERED: NICOTINE POLACRILEX 2 MG GUM BUC PRN (23:57)
[2024-05-18] MEDS ORDERED: guaiFENesin 600 MG TABLET.ER (FP) PO PRN (23:57)
[2024-05-18] MEDS ORDERED: BENZONATATE 200 MG CAPSULE PO PRN (23:57)
[2024-05-18] MEDS ORDERED: LOPERAMIDE HCL 2 MG CAPSULE PO PRN (23:57)
[2024-05-18] MEDS ORDERED: BENZOCAINE/MENTHOL (CHLORASEPTIC ) LOZENGE MM PRN (23:57)
[2024-05-18] MEDS ORDERED: ACETAMINOPHEN 325 MG TABLET (FP) PO PRN (23:57)
[2024-05-18] MEDS ORDERED: NALOXONE (NARCAN) HCL 4 MG/0.1 ML SPRAY NS PRN (23:57)
[2024-05-18] MEDS ORDERED: MAG HYDROX/AL HYDROX/SIMETH 30 ML UNIT-DOSE CUP PO PRN (23:57)
[2024-05-18] MEDS ORDERED: IBUPROFEN 400 MG TABLET (FP) PO PRN (23:57)
[2024-05-18] MEDS ORDERED: IBUPROFEN 600 MG TABLET (FP) PO PRN (23:57)
[2024-05-18] MEDS ORDERED: POLYETHYLENE GLYCOL (HEALTHYLAX) 3350 17 GM PACKET PO PRN (23:57)
[2024-05-18] MEDS ORDERED: MAGNESIUM HYDROX 2400MG/30ML ORAL SUSPENSION 30 ML CUP PO PRN (23:57)
[2024-05-19] MEDS ORDERED: INSULIN (NOVOLOG) ASPART 100 UNITS/ML 10ML VIAL ONE (01:08)
[2024-05-19] MEDS: INSULIN (NOVOLOG) ASPART 100 UNITS/ML 10ML VIAL SQ ONE ×2 (01:33→21:51)
[2024-05-19] MEDS: MELATONIN 5 MG TABLETS PO SCH (01:35)
[2024-05-19] MEDS ORDERED: INSULIN ASPART SLIDING SCALE (NOVOLOG) 1 VIAL SQ ONE ×2 (06:40→21:50)
[2024-05-19] MEDS: INSULIN ASPART SLIDING SCALE (NOVOLOG) 1 VIAL SQ SCH (06:44)
[2024-05-19] MEDS: cloNIDine HCL 0.1 MG TABLET PO ONE (06:47)
[2024-05-19 10:32] LABS: PH,URINE 5.5 (5.0-8.0); URINE APPEARANCE CLEAR; URINE BILIRUBIN NEGATIVE (NEGATIVE); URINE COLOR YELLOW; URINE GLUCOSE (UA) 3+ (NEGATIVE); URINE KETONE NEGATIVE (NEGATIVE); URINE LEUK ESTERASE NEGATIVE (NEGATIVE); URINE NITRITE NEGATIVE (NEGATIVE); URINE PROTEIN TRACE (NEGATIVE)
[2024-05-19 10:33] LABS: HEMATOCRIT 41.4 % (35.4-49); HEMOGLOBIN 13.9 GM/dL (11.7-16.9); MCH 31.3 pg (25.7-33.7); MCHC 33.6 g/dl (32.0-35.9); MEAN CELL VOLUME 93.2 fl (80-96); MEAN PLT VOLUME 10.5 fl (7.5-11.1); PLATELET COUNT 195 10^3/uL (134-434); RBC 4.44 M/mm3 (4.00-5.60); RDW 14.1 % (11.9-15.9)
[2024-05-19] MEDS: NICOTINE 14 MG/24 HOURS TOPICAL PATCH TD SCH (10:41)
[2024-05-19] MEDS: PRENATAL VITAMINS W/ FOLIC ACID TABLET (FP) PO SCH (10:41)
[2024-05-19] MEDS ORDERED: TUBERCULIN PPD 5 TU/0.1ML VIAL ID ONE (11:10)
[2024-05-19 11:17] LABS: CHLORIDE 94 mmol/L (98-107); POTASSIUM 3.8 mmol/L (3.5-5.1); SODIUM 131 mmol/L (136-145)
[2024-05-19 11:21] LABS: ANION GAP 9 mmol/L (4-13); BLOOD UREA NITROGEN 15.6 mg/dL (7-18); CALCIUM 8.9 mg/dL (8.5-10.1); CO2 28 mmol/L (21-32)
[2024-05-19 11:23] LABS: ALBUMIN 3.4 g/dl (3.4-5.0)
[2024-05-19 11:26] LABS: BILIRUBIN,TOTAL 0.4 mg/dL (0.2-1); CREATININE 0.9 mg/dL (0.55-1.3); SGOT/AST 22 U/L (15-37); SGPT/ALT 27 U/L (13-61); TOT PROT 6.7 g/dl (6.4-8.2)
[2024-05-19 11:27] LABS: ALK PHOS 165 U/L (45-117)
[2024-05-19 11:30] LABS: GLUCOSE,RANDOM 433 mg/dL (74-106)
[2024-05-19] MEDS: TUBERCULIN PPD 5 TU/0.1ML SYRINGE (IN PATIENT USE ONLY) ID ONE (11:44)
[2024-05-19] MEDS: THIAMINE 100 MG TABLET PO SCH (21:36)
[2024-05-20] MEDS: INSULIN ASPART SLIDING SCALE (NOVOLOG) 1 VIAL SQ SCH (06:19)
[2024-05-20] MEDS ORDERED: hydrOXYzine PAMOATE 50 MG CAPSULE (FP) PO PRN (09:04)
[2024-05-20] MEDS: CLOPIDOGREL BISULFATE 75 MG TABLET (FP) PO SCH (10:34)
[2024-05-20] MEDS: EMPAGLIFLOZIN (JARDIANCE) 10 MG TABLET PO SCH (11:13)
[2024-05-20] MEDS: OMEGA-3 ACID ETHYL ESTERS (FATTY-ACIDS) 1 GM CAPSULE (FP) PO SCH (12:12)
[2024-05-20 12:43] VITALS: BP 151/100; PULSE 99; RESP 18; TEMP 97.8
[2024-05-20] MEDS: RIVAROXABAN 20 MG TABLET PO SCH (23:55)
== END 2024-05-21 05:17 | disposition short-term general hospital (02) | DRG 895 ==
LOC: YASAS 20:53 → Y3W 05-19 01:25
PROVIDERS: ADMIT Allergy & Immunology; ATTEND Psychiatry & Neurology Pain Medicine
PROC: HZ42ZZZ Group Counseling for Substance Abuse Treatment, Cognitive-Behavioral (ICD-10-PCS; principal; 2024-05-19)
DX: F10.20 Alcohol dependence, uncomplicated (principal); F14.20 Cocaine dependence, uncomplicated; I48.92 Unspecified atrial flutter; F17.210 Nicotine dependence, cigarettes, uncomplicated; F31.9 Bipolar disorder, unspecified; F10.282 Alcohol dependence with alcohol-induced sleep disorder; F10.24 Alcohol dependence with alcohol-induced mood disorder; F90.9 Attention-deficit hyperactivity disorder, unspecified type; G47.33 Obstructive sleep apnea (adult) (pediatric); E05.90 Thyrotoxicosis, unspecified without thyrotoxic crisis or storm; I25.10 Atherosclerotic heart disease of native coronary artery without angina pectoris; I10 Essential (primary) hypertension; Z95.5 Presence of coronary angioplasty implant and graft; E11.65 Type 2 diabetes mellitus with hyperglycemia; Z79.84 Long term (current) use of oral hypoglycemic drugs; S09.90XA Unspecified injury of head, initial encounter; W01.0XXA Fall on same level from slipping, tripping and stumbling without subsequent striking against object, initial encounter; Y93.89 Activity, other specified; Y92.230 Patient room in hospital as the place of occurrence of the external cause; Z79.01 Long term (current) use of anticoagulants
CPT/HCPCS: 36415; 80053; 80305; 80307; 81003; 82962; 85027; 86780; 87811; 93005; 93010